=== PATIENT | female | born 2000 | race Caucasian/White ===

== ENCOUNTER 2022-06-02 12:43 | Emergency (ER) | payer BC ==
[2022-06-02 13:09] VITALS: RESP 18; BMI 21.1
[2022-06-02] MEDS ORDERED: METOCLOPRAMIDE HCL INJECTION 10 MG/2 ML VIAL IVPUSH ONE (15:25)
[2022-06-02] MEDS ORDERED: SODIUM CHLORIDE 0.9% 500 ML INFUS.BAG IV ONE (15:25)
[2022-06-02] MEDS ORDERED: KETOROLAC TROMETHAMINE 15 MG/ML VIAL IVPUSH ONE (15:25)
[2022-06-02] MEDS ORDERED: KETOROLAC TROMETHAMINE 15 MG/ML VIAL ONE (15:54)
[2022-06-02] MEDS ORDERED: METOCLOPRAMIDE HCL INJECTION 10 MG/2 ML VIAL ONE (15:54)
[2022-06-02 17:12] VITALS: BP 102/63; PULSE 72; TEMP 98.7
[2022-06-02 17:13] LABS: URINE APPEARANCE CLOUDY; URINE BILIRUBIN NEGATIVE (NEGATIVE); URINE COLOR YELLOW; URINE GLUCOSE (UA) NEGATIVE (NEGATIVE); URINE KETONE 2+ (NEGATIVE); URINE LEUK ESTERASE NEGATIVE (NEGATIVE); URINE NITRITE NEGATIVE (NEGATIVE); URINE PROTEIN NEGATIVE (NEGATIVE)
[2022-06-02 17:16] LABS: HCG,QUALITATIVE URINE Negative
== END 2022-06-02 17:54 | disposition home or self-care (01) ==
LOC: JER 12:43
PROC: 3E033GC Introduction of Other Therapeutic Substance into Peripheral Vein, Percutaneous Approach (ICD-10-PCS; principal; 2022-06-02)
DX: R51.9 Headache, unspecified (principal)
CPT/HCPCS: 70450-TC; 81003; 84703; 87086; 93005; 93010; 99285-25